=== PATIENT | female | born 1950 | race African-American/Black ===

== ENCOUNTER 2019-11-11 09:39 | Outpatient (CLI) | payer MEDICARE, SELFPAY ==
--- NOTE | ~2019-11-11 | MM_ITS ---
EXAMINATION: MM screening kaitlin BI w robyn HISTORY: Screening mammogram TECHNIQUE: Craniocaudal and mediolateral oblique 3-D tomosynthesis images were obtained and synthetic 2-D images were generated. CAD analysis was submitted and interpreted. COMPARISON: No prior mammogram is available for comparison at this institution. BREAST PARENCHYMAL COMPOSITION: There are scattered areas of fibroglandular density. FINDINGS: There is a biopsy marker on the left; history of prior benign left breast biopsy. There is no evidence of suspicious mass, calcification, or architectural distortion to suggest malignancy in e ither breast. There has been no suspicious interval change. IMPRESSION: 1. No mammographic evidence of malignancy. 2. Recommend routine screening mammography in one year. BI-RADS Category 1: Negative Reviewed, dictated and finalized at location A. [employer]
== END 2019-11-11 09:40 | disposition home or self-care (01) ==
LOC: ANHIMG 09:45
PROVIDERS: PCP Student in an Organized Health Care Education/Training Program; Visit Provider Student in an Organized Health Care Education/Training Program
DX: Z12.31 Encounter for screening mammogram for malignant neoplasm of breast (principal)
CPT/HCPCS: 77063; 77067

== ENCOUNTER 2019-11-16 16:17 | Outpatient (CLI) | payer MEDICARE, SELFPAY ==
--- NOTE | ~2019-11-16 | CT_ITS ---
EXAMINATION: CT chest wo con DATE: 11/16/2019 16:54 INDICATION: Pulmonary nodule follow-up TECHNIQUE: Computed tomography (CT) of the chest was performed without intravenous contrast. The dose -length product was 141.21 mGy-cm. Automated exposure control and iterative reconstruction technique were employed. COMPARISON: None FINDINGS: There are 2 fissural nodules on the right both measuring 5 mm. There is a 2-3 mm right uppe r lobe nodule, image 39. There is a 3 mm left-sided fissural nodule, image 71. No endobronchial lesio ns. Calcified granuloma left upper lobe. 2 mm right upper lobe nodule, image 30. Thyroid gland is unr emarkable. No thoracic lymphadenopathy. No significant pleural or pericardial effusion. Visualized as pects of the upper abdomen are unremarkable. Mild thoracic spondylosis. IMPRESSION: 1. Bilateral pulmonary nodules, largest located along the minor fissure measuring 5 mm, likely benign . Follow-up low dose CT chest in 12 months recommended to assess stability. Reviewed, dictated and finalized at location A. [employer]IST IMPRESSION: 1. Bilateral pulmonary nodules, largest located along the minor fissure measuri ng 5 mm, likely benign. Follow-up low dose CT chest in 12 months recommended to assess stability.
== END 2019-11-16 16:18 | disposition home or self-care (01) ==
LOC: ANHIMG 16:17
PROVIDERS: PCP Student in an Organized Health Care Education/Training Program; Visit Provider Student in an Organized Health Care Education/Training Program
DX: R91.1 Solitary pulmonary nodule (principal)
CPT/HCPCS: 71250